=== PATIENT | male | born 1980 | race Caucasian/White ===

== ENCOUNTER → 2019-09-29 15:16 | Outpatient (CLI) | payer OTHER, SELFPAY ==
--- NOTE | 2019-09-29 | DI.RAD.S_ITS ---
PROCEDURE: XR KNEE RT 3V INDICATIONS: RIGHT KNEE PAIN TECHNIQUE: 3 views of the knee were acquired. COMPARISON: None. FINDINGS: Bones: No fractures or dislocations. No suspicious bony lesions. No significant degenerative changes of the knee are present. The joint spaces appear to be well-maintained. Soft tissues: No joint effusion. No suspicious soft tissue calcifications. IMPRESSION: Unremarkable right knee radiographs. Dictated by: Cameron Meza M.D. on 09/29/2019 at 14:45 Approved by: Cameron Meza M.D. on 09/29/2019 at 14:45
== END ==
PROVIDERS: Family Provider Family Medicine; PCP Family Medicine; Referring Provider Family Medicine; Visit Provider Family Medicine
DX: M25.561 Pain in right knee (principal)
CPT/HCPCS: 73562